=== PATIENT | male | born 1940 | race Caucasian/White ===

== ENCOUNTER → 2018-01-03 | Outpatient (CLI) | payer OTHER ==
[~2018-01-03] MED LIST: GADOPENTETATE DIMEGLUMINE 15 ML VIAL IV ONE
== END | disposition still patient (30) ==
LOC: SMI 08:10
PROVIDERS: ATTEND Internal Medicine Infectious Disease
DX: R22.1 Localized swelling, mass and lump, neck (principal); M86.9 Osteomyelitis, unspecified; E03.1 Congenital hypothyroidism without goiter; M85.812 Other specified disorders of bone density and structure, left shoulder
CPT/HCPCS: 70543; A9579 ×2